=== PATIENT | female | born 1935 | race African-American/Black ===

== ENCOUNTER 2017-01-16 08:28 | Emergency (ER) | payer MEDICARE, OTHER ==
--- NOTE | ~2017-01-16 | EKG ---
PATIENT: ASHLEY ESPINOZA UNIT #: [id number] Ventricular Rate: 81 BPM Atrial Rate: 81 BPM P-R Interval: 160 ms QRS Duration: 86 ms Q-T Interval: 396 ms QTC Calculation(Bezet): 460 ms P [place]: 59 degrees Calculated R [place]: -7 degrees Calculated T [place]: 41 degrees Diagnosis Line: Normal sinus rhythm Diagnosis Line: Moderate voltage criteria for LVH, may be normal Diagnosis Line: variant Diagnosis Line: Borderline ECG Diagnosis Line: When compared with ECG of 12-AUG-2012 17:38, Diagnosis Line: Criteria for Septal infarct are no longer Present Diagnosis Line: Confirmed by MICHAEL HERNADEZ MD ([id number]) on Diagnosis Line: 01/18/2017 4:48:50 PM INTERPRETING MD: MARICARMEN LOPES
--- NOTE | ~2017-01-16 | MR18 ---
[facility] A Service of [facility] & [facility] RADIOLOGY TEXT RESULTS PATIENT: ASHLEY ESPINOZA LOCATION: SED : 39 UNIT #: [id number] AGE: [address]: Juliann Arriola MD SEX: F ORDER DR: [id number] [place] [id number] E MR#: [id number] Acc #: [id number] NAME: ASHLEY ESPINOZA : 1935 SEX: F STUDY DATE/TIME: 01/16/2017 11:12 UNIT: SED ROOM: STUDY DESCRIPTION: MR Brain Wo Contrast Attending Physician: Juliann Arriola M.D. Ordering Physician: Juliann Arriola M.D. Primary Care Physician: Kia Candelaria M.D. MRI CENTER REPORT This report is preliminary unless electronic signature is present. EXAM MRI without. HISTORY Dizziness with neurologic deficit. Patient woke up this morning with dizziness and vertigo. Patient complains of lightheadedness and visual disturbance but symptoms have subsided since this morning. No known injury. Patient has a history of hypertension and diabetes. Patient has some autoimmune disease. No cancer history indicated. COMMENT MRI of the brain was performed without contrast using routine 1.5T wide-bore imaging technique. There is no comparison study of the brain. There is a separate MR angiogram intracranial. There is no evidence for a recent ischemic insult on the diffusion series. Midline structures are unremarkable. There is mild generalized atrophy. There is no extra axial fluid collection. The ventricles are normal in size and configuration for age group. 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 The distal right vertebral artery is dominant and supplies the basilar. Otherwise the major intracranial arterial flow voids are maintained. There are punctate chronic lacunes or prominent perivascular spaces in the bilateral basal ganglia and there is mild white matter signal abnormality most apparent in the periventricular and deep white matter which is nonspecific but all probably due to small vessel disease given age group and history of hypertension and diabetes. There is no MRI evidence for intracranial hemorrhage. The visualized paranasal sinuses and mastoid air cells are clear. IMPRESSION 1. No evidence for a recent ischemic insult on the diffusion series. 2. 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 [facility] A Service of [facility] & [facility] RADIOLOGY TEXT RESULTS PATIENT: ASHLEY ESPINOZA [place] [facility] 39 UNIT #: [id number] AGE: [address]: Juliann Arriola MD SEX: F ORDER DR: STAT * RESULT Dictated by... Shakira Araujo M.D. THIS IS AN ELECTRONICALLY VERIFIED REPORT Shakira Araujo M.D. at 01/16/2017 4:09 PM ZEYNEP/lottie TD: 01/16/2017 12:38 JOB #: [id number] MRI CENTER REPORT Page 1 of 1
--- NOTE | ~2017-01-16 | MR122 ---
[facility] A Service of [facility] & [facility] RADIOLOGY TEXT RESULTS PATIENT: ASHLEY ESPINOZA LOCATION: SED : 37 UNIT #: [id number] AGE: [address]: Juliann Arriola MD SEX: F ORDER DR: [id number] [place] [id number] E MR#: [id number] Acc #: [id number] NAME: ASHLEY ESPINOZA : 1935 SEX: F STUDY DATE/TIME: 01/16/2017 11:04 UNIT: SED ROOM: STUDY DESCRIPTION: MR MRA Head Wo Contrast Attending Physician: Juliann Arriola M.D. Ordering Physician: Juliann Arriola M.D. Primary Care Physician: Kia Candelaria M.D. MRI CENTER REPORT This report is preliminary unless electronic signature is present. EXAM MR angiogram intracranial HISTORY Neurologic deficit, dizziness. No known injury. Patient woke up this morning with dizziness, vertigo, lightheadedness and visual disturbance. Symptoms have since subsided. History of hypertension, diabetes and some type of autoimmune disorder. TECHNIQUE MR angiography attempted [place] vasculature. A portion of the study was performed twice because of the signal loss that is seen at the junction of the distal cervical internal carotid arteries and the petrous internal carotid artery; the bilateral symmetry suggests that this is artifact but unfortunately persistent on both of the series run. The area is simply not well evaluated and best further assessed with a CT angiogram if the patient is candidate and more information is needed. FINDINGS The right vertebral artery supplies the basilar. The distal left vertebral artery is hypoplastic and largely terminates in a PICA vessel. There is a small left posterior communicator present and probably a tiny right posterior communicator. No distal intracranial vascular cutoff is appreciated. The right A1 vessel is quite hypoplastic and the majority of supply to the right A2 vessels probably from the left side across the anterior communicator. This study is not of sufficient quality to assess for subtle areas of stenosis. There is some irregularity of the distal aspect of the left A1 vessel and into the A2 vessels. Again, this could be artifactual or real and it is best pursued with a CT angiogram if the patient is candidate. There is what appears to be an infundibulum at the origin of the left posterior communicator. IMPRESSION [facility]. [facility] A Service of [facility] & [facility] RADIOLOGY TEXT RESULTS PATIENT: ASHLEY ESPINOZA LOCATION: [facility] : 39 UNIT #: [id number] AGE: [address]: Juliann Arriola P SEX: F ORDER DR: 1. There is irregular signal loss seen with bilateral symmetry at the junction of the distal cervical internal carotid arteries and petrous internal carotid arteries. This is probably artifactual but it is seen on both of the series run. The area is simply not well evaluated and best characterized further with a CT angiogram if the patient is a candidate for iodinated contrast media. 2. There are intracranial vascular variations discussed above. No intracranial vascular cutoff is definitely seen. I believe the right A1 vessel is quite hypoplastic and supply the right A2 vessel is largely from the left side. There may be some areas of stenosis of the distal left A1 vessel and into the A2 vessels but unfortunately because of the quality of the study, this could be real or artifactual. This would also be better evaluated with CT angiogram if it would alter the patient's clinical management. It appears that the distal left vertebral artery is hypoplastic and largely terminates in a PICA vessel. 1. Dictated by... Shakira Araujo M.D. THIS IS AN ELECTRONICALLY VERIFIED REPORT Shakira Araujo M.D. at 01/17/2017 10:41 AM SAC/to TD: 01/16/2017 13:12 JOB #: [id number] MRI CENTER REPORT Page 1 of 1
[~2017-01-16 08:28] MED LIST: ALPHAGAN P5 ML OU; AMBIEN10 MG PO; ARMOUR THYROID15 MG PO; ASPIRIN PO; ASPIRIN81 M1 PO; ATACAND HCT 32/1 TAB PO; ATACAND HCT 321 EACH PO; CALCIUM PO; COD LIVER OIL1 CA1 PO; CRESTOR5 MG PO; CYMBALTA20 MG PO; DIAZEPAM PO; ELESTAT OP; ESTER C PO; FOLIC ACID-B12/1 TAB PO; FORTAMET500 MG/BOT PO; GLUCOPHAGE XR500 MG PO; HUMALOG100 U/ML SUBQ; JANUVIA PO; LANTUS100 U/ML SUBQ; LEVEMIR100 U/ML SQ; LORATADINE PO; LORTAB 7.5-5001 TAB PO; LUMIGAN; LUMIGAN2.5 ML OU; METFORMIN PO; MIRALAX17 GM PO; MUCINEX PO; NAPROSYN250 M1 PO; NASONEX17 GM; NORVASC PO; NOVOLOG100 U/M1 SQ; OCEAN45 ML; OXYGEN; PLAQUENIL200 MG PO; PRILOSEC PO; PRILOSEC20 MG PO; PROBIOTIC1 EACH PO; REFRESH5 ML OP; VITAMIN D2000 UNI1 PO; VITAMIN E400 UNI1 PO; ZYRTEC PO; [UNRECOGNIZED DRUG - OTHER] PO; [UNRECOGNIZED DRUG - OTHER] PO; [UNRECOGNIZED DRUG - OTHER] PO; [UNRECOGNIZED DRUG - OTHER] PO
[2017-01-16] MEDS ORDERED: TOPROL XL PO (08:46)
[2017-01-16] MEDS ORDERED: ATIVAN (08:47)
[2017-01-16 08:55] LABS: BASOPHIL% 0.4 % (0-2.5); EOSINOPHIL# 0.1 X10e3 (0-0.7); EOSINOPHIL% 1.6 % (0.0-7.0); LYMPHOCYTE# 1.2 X10e3 (1.0-3.5); LYMPHOCYTE% 30.1 % (17.0-45.0); MEAN CELL VOLUME 84.2 FL (83-96); MEAN CORPUSCULAR HEMOGLOBIN 27.4 PG (28-34); MEAN CORPUSCULAR HGB CONC 32.6 g/dL (30-36); MEAN PLATELET VOLUME 8.1 FL (6.5-11.5); MONOCYTE# 0.4 X10e3 (0-1.0); MONOCYTE% 10.5 % (3.0-12.0); NEUTROPHIL# 2.3 X10e3 (1.5-7.1); NEUTROPHIL% 57.4 % (40-75); PLATELET COUNT 160 X10e3 (140-420); RED BLOOD COUNT 4.39 X10e (3.90-5.30); RED CELL DISTRIBUTION WIDTH 12.9 % (11.0-15.5)
[2017-01-16 08:56] LABS: DIFF IND NO
[2017-01-16 09:13] LABS: ALBUMIN SERUM 3.6 g/dL (3.5-5.0); BILIRUBIN, DIRECT 0.1 mg/dL (0.0-0.2); BILIRUBIN,INDIRECT 0.3 mg/dL (0.0-0.9); BILIRUBIN,TOTAL 0.4 mg/dL (0.2-2.0); CALCIUM SERUM 8.8 mg/dL (8.4-10.2); CREATININE SERUM 0.7 mg/dL (0.6-1.4); GLOM FILT RATE Estimated 95.5 mL/min (>60); MAGNESIUM 1.6 mg/dL (1.6-3.0); POTASSIUM 3.4 mmol/L (3.5-5.1); PROTEIN TOTAL SERUM 9.1 g/dL (6.0-8.3)
[2017-01-16 09:19] LABS: POC - CKMB 14.6 ng/mL (0.0-7.9); POC - TROPONIN <0.05 ng/mL (<=0.05)
== END 2017-01-16 13:58 | disposition home or self-care (01) ==
LOC: SED 08:28
PROVIDERS: Student in an Organized Health Care Education/Training Program
DX: R42 Dizziness and giddiness (principal); E11.65 Type 2 diabetes mellitus with hyperglycemia; I10 Essential (primary) hypertension; Z88.0 Allergy status to penicillin; Z91.041 Radiographic dye allergy status; Z88.8 Allergy status to other drugs, medicaments and biological substances; Z79.4 Long term (current) use of insulin; Z79.899 Other long term (current) drug therapy
CPT/HCPCS: 36415; 70544; 70551; 80048; 80076; 82553; 83735; 83880; 84484; 85025; 93005; 99284

== ENCOUNTER → 2017-02-05 | Outpatient (CLI) | payer MEDICARE, OTHER ==
[~2017-02-05] MED LIST changes: +ATIVAN; +TOPROL XL PO
--- NOTE | ~2017-02-05 | CR151 ---
[facility]. [facility] A Service of [facility] & [facility] RADIOLOGY TEXT RESULTS PATIENT: ASHLEY ESPINOZA LOCATION: [facility] : 39 UNIT #: [id number] AGE: [address]: Blu Rodriguez MD SEX: F ORDER DR: [id number] [place] [id number] O MR#: [id number] Acc #: [id number] NAME: ASHLEY ESPINOZA : 1935 SEX: F STUDY DATE/TIME: 02/05/2017 17:03 UNIT: SRAD ROOM: STUDY DESCRIPTION: CR Hip Min 2 Views Rt Attending Physician: Blu Rodriguez Referring Physician: Blu Rodriguez Ordering Physician: Physician Non-Staff Primary Care Physician: Kia Candelaria M.D. MEDICAL IMAGING REPORT This report is preliminary unless electronic signature is present. EXAM Right hip, 02/05 INDICATION Right hip pain for 1 month. No trauma. FINDINGS AP pelvis was obtained in addition to a frogleg right hip. No fracture or malalignment is seen. The femoral heads are normal without evidence of osteonecrosis. There is bilateral sacroiliitis, right greater than left. There is also some degenerative disease in the lower lumbar spine. IMPRESSION There hips are negative. 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 Dictated by... Miguel Dominguez Jr., M.D. THIS IS AN ELECTRONICALLY VERIFIED REPORT Miguel Dominguez Jr., M.D. at 02/06/2017 3:50 PM ANGEL/dylon TD: 02/06/2017 15:28 JOB #: [id number] MEDICAL IMAGING REPORT Page 1 of 1
== END | disposition home or self-care (01) ==
LOC: SRAD 16:40
DX: M25.551 Pain in right hip (principal); D47.2 Monoclonal gammopathy; M46.1 Sacroiliitis, not elsewhere classified; M51.36 Other intervertebral disc degeneration, lumbar region
CPT/HCPCS: 73502